=== PATIENT | female | born 1960 | race Caucasian/White ===

== ENCOUNTER 2017-11-08 10:05 | Emergency (ER) | payer BC ==
[2017-11-08 10:13] VITALS: BP 157/83; BMI 25.5
--- NOTE | 2017-11-08 10:35 | DR.GENAD ---
HPI - PCP Primary Care Physician: MADELINE - HPI Comment HPI Comment: HISTORY BELOW. 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 HAVE BEING TRATED FOR BRONCHITIS AND PNEUMONIA RECENTLY. CTA DONE FEW DAYS AGO WAS NEGATIVE FOR PE. PATIENT CONTINUE TO FEEL SOB. SHE STILL FEEL SICK. Chief Complaint:: PATIENT STATED THAT SHE HAS BEEN SOB AND CHEST HURTING FOR THE LAST 6 WEEKS. SHE STATED THAT SHE HAS HAD SURGERY BACK IN [facility] AND SHE HAS BEEN REALLY SICK SINCE THEN. SHE STATED THAT SHE WAS IN [place] ON WEDNESDAY OF LAST WEEK. - Nurses notes reviewed Nurses Notes Review: Yes - Source History Provided: Patient - Mode of Arrival Mode of Arrival: Ambulatory - Timing Onset of Chief Complaint: 08/30/17 Came on: Suddenly - Duration Duration: Constant Duration: Days - Severity Severity: Moderate PMH - PMH Past Medical History: Yes Past Medical History: Hypertension Past Medical History Comment: UTI Past Surgical History: Yes Surgical History: , RF DESIGN ENGINEER Surgery Past Surgical History Comment: TVT - Family History History of Family Medical Conditions: Yes Family Medical History: [place], Hypertension Family Medical History Comment: TYROID - Social History Does patient currently use any type of tobacco product: Yes Have you used tobacco products in the last 12 months: Yes Type of Tobacco Use: Cigarettes Does any household member use tobacco: No Alcohol Use: Rarely Do you use any recreational Drugs:: No Lives With: Family Lives Where: Home - infectious screening In the last 2 months have you had wt loss of >10#?: NO Have you had fever, night sweats or hemotysis?: No Have you traveled outside the country in the last 6 months?: No Isolation: Standard ROS - Review of Systems Constitutional: No Symptoms Reported Eyes: No Symptoms Reported ENTM: No Symptoms Reported Respiratoy: No Symptoms Reported Cardiovascular: No Symptoms Reported Gastrointestinal/Abdominal: Abdominal Pain (RT GROIN.) Neurological: No Symptoms Reported Musculoskeletal: No Symptoms Reported Integumentary: No Symptoms Reported Hematologic/Lymphatic: No Symptoms Reported Endocrine: No Symptoms Reported All Other Systems: Reviewed and Negative PE - Vital Signs Vitals: Temperature 98.1 F Pulse Rate 98 Respiratory Rate 20 Blood Pressure 157/83 O2 Sat by Pulse Oximetry 98 - General Limitations: No Limitations General Appearance: Alert - Head Head Exam: Normal Inspection - Eyes Eye exam: Normal Appearance - ENT ENT Exam: Normal External Ear Exam External Ear Exam: Normal External Inspection TM/Canal Exam: Bilateral Normal Nose Exam: Normal Nose Exam Mouth Exam: Normal Inspection Throat Exam: Normal Inspection - Neck Neck Exam: Trachea Midline - Chest Chest Inspection: Symmetric Chest Wall Rise - Respiratory Respiratory Exam: Normal Lung Sounds Bilat Respiratory Exam: Bilateral Clear to Auscultation - Cardiovascular Cardiovascular Exam: Regular Rate, Normal Rhythm, Normal Heart Sounds - Abdominal Exam Abdominal Exam: Normal Bowel Sounds, Soft, Tenderness (RT GROIN) Abdominal Tenderness: RLQ, Moderate - Extremities Extremities Exam: Normal Inspection - Back Back Exam: Normal Inspection - Neurologic Neurological Exam: Alert, Oriented X3 - Psychiatric Psychiatric Exam: Normal Affect, Normal Mood - Skin Skin Exam: Normal Color MDM - Differential Diagnosis Differential Diagnosis: RT GROIN PAIN, TRANGULATED RIH, KIDNEY STONE, Course - Treatment Treatment: SEE ORDERS. - Education/Counseling Education/Counseling: Patient, Education Educated On: Diagnosis ROR - Labs Reviewed Laboratory Results Reviewed?: Yes Result Diagrams: 11/08/17 11:22 11/08/17 11:22 Laboratory: WBC 11.6 X10^3/uL (3.6-10.0) H 11/08/17 11:22 RBC 4.90 X10^6/uL (3.5-5.4) 11/08/17 11:22 Hgb 15.6 g/dL (12.0-16.0) 11/08/17 11:22 Hct 44.0 % (36.0-47.0) 11/08/17 11:22 MCV 89.9 fL (80.0-100.0) 11/08/17 11:22 MCH 31.9 pg (27.0-34.0) 11/08/17 11:22 MCHC 35.5 g/dL (33.0-35.0) H 11/08/17 11:22 RDW 13.1 % (11.6-16.5) 11/08/17 11:22 Plt Count 204 X10^3/uL (150.0-450.0) 11/08/17 11:22 MPV 8.5 fL (7.4-11.0) 11/08/17 11:22 Neut % (Auto) 68.5 % (42.0-75.0) 11/08/17 11:22 Lymph % (Auto) 16.4 % (21.0-51.0) L 11/08/17 11:22 Wheeler % (Auto) 8.9 % (0.0-13.0) 11/08/17 11:22 Eos % (Auto) 5.3 % (0.9-2.9) H 11/08/17 11:22 Baso % (Auto) 0.9 % (0.2-1.0) 11/08/17 11:22 Neut # (Auto) 7.9 x10^3/uL (2.2-4.8) H 11/08/17 11:22 Lymph # (Auto) 1.9 X10^3/uL (1.3-2.9) 11/08/17 11:22 Wheeler # (Auto) 1.0 x10^3/uL (0.3-0.8) H 11/08/17 11:22 Eos # (Auto) 0.6 x10^3/uL (0.0-0.2) H 11/08/17 11:22 Baso # (Auto) 0.1 X10^3/uL (0.0-0.1) 11/08/17 11:22 Absolute Nucleated RBC 0.0 /100WBC 11/08/17 11:22 D-Dimer < 100 ng/mL (0-400) 11/08/17 11:22 Sample Site Left radial 11/08/17 11:10 ABG pH 7.510 (7.35-7.45) H 11/08/17 11:10 ABG pCO2 36.0 mmHg (35.0-45.0) 11/08/17 11:10 ABG pO2 63.0 mmHg (80.0-100.0) L 11/08/17 11:10 ABG HCO3 28.7 mmol/L (22-26) H 11/08/17 11:10 ABG O2 Saturation 94.0 % (90-100) 11/08/17 11:10 ABG Base Excess 5.5 mmol/L (-2.0-2.0) H 11/08/17 11:10 Parker Test Pos 11/08/17 11:10 A-a Gradient 42.0 mmHg 11/08/17 11:10 FiO2 21.000 11/08/17 11:10 Blood Gas Comments Victor Hugo well aw 11/08/17 11:10 Sodium 137 mmol/L (136-145) 11/08/17 11:22 Corrected Sodium 138 mmol/L (136-145) 11/08/17 11:22 Potassium 3.1 mmol/L (3.5-5.1) L 11/08/17 11:22 Chloride 98 mmol/L (98-107) 11/08/17 11:22 Carbon Dioxide 30.9 mmol/L (21-32) 11/08/17 11:22 BUN 10 mg/dL (7-18) 11/08/17 11:22 Creatinine 0.98 mg/dL (0.55-1.02) 11/08/17 11:22 Est GFR (MDRD) Af Amer > 60 (>60) 11/08/17 11:22 Est GFR (MDRD) Non-Af > 60 (>60) 11/08/17 11:22 Glucose 123 mg/dL (65-99) H 11/08/17 11:22 Calcium 8.9 mg/dL (8.5-10.1) 11/08/17 11:22 Corrected Calcium TNP 11/08/17 11:22 Magnesium 2.4 mg/dL (1.7-2.9) 11/08/17 11:22 Total Bilirubin 0.60 mg/dL (0.2-1.0) 11/08/17 11:22 AST 19 Units/L (15-37) 11/08/17 11:22 ALT 14 Units/L (12-78) 11/08/17 11:22 Alkaline Phosphatase 85 Units/L (46-116) 11/08/17 11:22 Creatine Kinase 104 Units/L (26-192) 11/08/17 11:22 CK-MB (CK-2) 1.3 ng/mL (0-4.0) 11/08/17 11:22 CK/CKMB % Calc 1.3 % (<4) 11/08/17 11:22 Troponin I < 0.02 ng/mL (0-1.5) 11/08/17 11:22 C-Reactive Protein 18.30 mg/L (0-3.0) H 11/08/17 11:22 B-Natriuretic Peptide 15.4 pg/mL (0-79) 11/08/17 11:22 Total Protein 7.9 g/dL (6.4-8.2) 11/08/17 11:22 Albumin 4.0 g/dL (3.4-5.0) 11/08/17 11:22 Globulin 3.9 g/dL (2.5-4.5) 11/08/17 11:22 Albumin/Globulin Ratio 1.0 Ratio (1.1-2.1) L 11/08/17 11:22 Specimen Type Clean catch urine 11/08/17 10:43 Urine Color Yellow (YELLOW) 11/08/17 10:43 Urine Appearance Slightly hazy (CLEAR) 11/08/17 10:43 Urine pH 6.0 (5.0 - 8.0) 11/08/17 10:43 Ur Specific [place] 1.010 (1.000-1.030) 11/08/17 10:43 Urine Protein Negative (NEGATIVE) 11/08/17 10:43 Urine Glucose (UA) Negative (NEGATIVE) 11/08/17 10:43 Urine Ketones Negative (NEGATIVE) 11/08/17 10:43 Urine Occult Blood 1+ (NEGATIVE) 11/08/17 10:43 Urine Nitrite Positive (NEGATIVE) 11/08/17 10:43 Urine Bilirubin Negative (NEGATIVE) 11/08/17 10:43 Urine Urobilinogen Normal (NORMAL) 11/08/17 10:43 Ur Leukocyte Esterase Negative (NEGATIVE) 11/08/17 10:43 Urine RBC 0-2 /HPF (NONE SEEN) 11/08/17 10:43 Urine WBC 0-2 /HPF (NONE SEEN) 11/08/17 10:43 Ur Squamous Epith Cells Few /HPF (NEGATIVE) 11/08/17 10:43 Urine Bacteria 1+ /HPF (NEGATIVE) 11/08/17 10:43 Ur Culture Indicated? Yes/culture set up 11/08/17 10:43 - XRAY XRAY Interpreted by: Radiologist XRAY Findings: REPORT DISCUSS WITH PATIENT AND FAMILY. - EKG Rhythm: NSR (EKG NOTED) - Diagnosis Discharge Problem: Dyspnea, UTI (urinary tract infection), Alkalosis, Hypokalemia - Discharge Plan Disposition: 01 HOME, SELF-CARE Condition: Stable Prescriptions: Prednisone [Prednisone Tab 10 mg] 10 mg PO QAM #20 tab Sulfamethoxazole-Trimethoprim [BACTRIM DS TAB 800/160 MG *] 1 tab PO BID #20 tab - Follow ups/Referrals Follow ups/Referrals: LALO CORREA [Primary Care Provider] - 3 days - Instructions Instructions: Shortness of Breath, Adult, [id number], Hypokalemia, Urinary Tract Infection, Adult, [id number], Urinary Tract Infection, Adult Additional Instructions: RETURN TO ED IF WORSE. THERE IS ALKALOSIS ON ABG.
[2017-11-08 10:51] LABS: BILIRUBIN,URINE NEGATIVE (NEGATIVE); BLOOD/HEMOGLOBIN,URINE 1+ (NEGATIVE); GLUCOSE, URINE NEGATIVE (NEGATIVE); KETONES,URINE NEGATIVE (NEGATIVE); LEUKOCYTE ESTERASE ,URINE NEGATIVE (NEGATIVE); NITRITES,URINE POSITIVE (NEGATIVE); PROTEIN,URINE NEGATIVE (NEGATIVE); UROBILINOGEN,URINE NORMAL (NORMAL)
[2017-11-08 11:14] LABS: APPEARANCE,URINE SLIGHTLY HAZY (CLEAR); COLOR,URINE YELLOW (YELLOW)
[2017-11-08 11:15] LABS: BACTERIA,URINE 1+ /HPF (NEGATIVE); RBC,URINE 0-2 /HPF (NONE SEEN); SQUAMOUS EPITHELIAL CELL,UR FEW /HPF (NEGATIVE)
[2017-11-08 11:22] LABS: ABG ALLEN TEST POS; ABG BASE EXCESS 5.5 mmol/L (-2.0-2.0); ABG HCO3 28.7 mmol/L (22-26)
[2017-11-08 11:37] LABS: BASOPHILS # (AUTO) 0.1 X10^3/uL (0.0-0.1); BASOPHILS % (AUTO) 0.9 % (0.2-1.0); EOSINOPHILS # (AUTO) 0.6 x10^3/uL (0.0-0.2); EOSINOPHILS % (AUTO) 5.3 % (0.9-2.9); HEMOGLOBIN 15.6 g/dL (12.0-16.0); LYMPHOCYTES # (AUTO) 1.9 X10^3/uL (1.3-2.9); LYMPHOCYTES % (AUTO) 16.4 % (21.0-51.0); MEAN CORPUSCULAR HEMOGLOBIN 31.9 pg (27.0-34.0); MEAN CORPUSCULAR HGB CONC 35.5 g/dL (33.0-35.0); MEAN CORPUSCULAR VOLUME 89.9 fL (80.0-100.0); MEAN PLATELET VOLUME 8.5 fL (7.4-11.0); MONOCYTES % (AUTO) 8.9 % (0.0-13.0); NEUTROPHILS # (AUTO) 7.9 x10^3/uL (2.2-4.8); NEUTROPHILS % (AUTO) 68.5 % (42.0-75.0); PLATELET COUNT 204 X10^3/uL (150.0-450.0); RED CELL DISTRIBUTION WIDTH 13.1 % (11.6-16.5); WHITE BLOOD COUNT 11.6 X10^3/uL (3.6-10.0)
[2017-11-08 11:46] LABS: ALANINE AMINOTRANSFERASE 14 Units/L (12-78); ALKALINE PHOSPHATASE 85 Units/L (46-116); ASPARTATE AMINO TRANSFERASE 19 Units/L (15-37); BLOOD UREA NITROGEN 10 mg/dL (7-18); CALCIUM 8.9 mg/dL (8.5-10.1); CARBON DIOXIDE 30.9 mmol/L (21-32); CHLORIDE 98 mmol/L (98-107); COR NA(FOR HYPERGLY) 138 mmol/L (136-145); CREATININE 0.98 mg/dL (0.55-1.02); SODIUM 137 mmol/L (136-145); TOTAL PROTEIN 7.9 g/dL (6.4-8.2); eGFR BLACK RACES > 60 (>60); eGFR NON BLACK RACES > 60 (>60)
[2017-11-08 12:02] LABS: CKMB % 1.3 % (<4); CREATINE KINASE 104 Units/L (26-192); CREATINE KINASE MB 1.3 ng/mL (0-4.0); TROPONIN I < 0.02 ng/mL (0-1.5)
[2017-11-08 12:07] LABS: B-TYPE NATRIURETIC PEPTIDE 15.4 pg/mL (0-79)
[2017-11-08] MEDS ORDERED: DUONEB 0.5 MG/3 MG ONE (12:07)
[2017-11-08] MEDS ORDERED: DUONEB 0.5 MG/3 MG NEB ONE (12:14)
--- NOTE | 2017-11-08 12:42 | RAD ---
Indication: Chest pain Exam: PA and lateral Comparison: None. Findings: The heart is normal. The pulmonary vessels are normal. The lungs are mildly hyperinflated b ut clear. No consolidation or effusion is seen. The bones are intact. There is no pneumothorax. Impression: Mild hyperinflation with no acute pulmonary abnormality. Reported By:
[2017-11-08] MEDS ORDERED: K-LYTE EFFERVESCENT PO SCH (13:00)
[2017-11-08] MEDS ORDERED: K-LYTE EFFERVESCENT ONE (13:12)
== END 2017-11-08 13:46 | disposition home or self-care (01) ==
LOC: ER 10:18
DX: R06.00 Dyspnea, unspecified (principal); N39.0 Urinary tract infection, site not specified; E87.3 Alkalosis; E87.6 Hypokalemia; R94.31 Abnormal electrocardiogram [ECG] [EKG]; B96.29 Other Escherichia coli [E. coli] as the cause of diseases classified elsewhere
CPT/HCPCS: 36415; 36600; 71046; 80053; 81001; 82550; 82553; 82803; 83735; 83880; 84484; 85025; 85378; 86140; 87086; 87088; 87186; 93005; 93010; 94640; 99282; 99283; J7620